=== PATIENT | male | born 1965 | race African-American/Black ===

== ENCOUNTER 2021-08-05 10:27 | Emergency (ER) | payer MEDICAID ==
[~2021-08-05] VITALS: Ht 182.9 cm; Wt 75.0 kg
[2021-08-05] MEDS ORDERED: LIDOCAINE HCL/EPINEPHRINE 1%-EPI 1:100,000 20 ML VIAL INFIL ONE (11:15)
[2021-08-05] MEDS ORDERED: TETANUS, DIPHTHERIA, PERTUSSIS VAC/PF 0.5ML (>10YR OLD) IM ONE (11:15)
[2021-08-05] MEDS ORDERED: HYDROCODONE/ACETAMINOPHEN 5/325MG TABLET PO ONE (11:15)
[2021-08-05] MEDS ORDERED: BACITRACIN ZINC OINT UDPKT TOP ONE (11:15)
[2021-08-05] MEDS ORDERED: IBUP-2029 MT (12:19)
[2021-08-05] MEDS ORDERED: CEPH500T MT (12:19)
[2021-08-05 12:27] VITALS: BP 128/79
== END 2021-08-05 12:30 | disposition home or self-care (01) ==
LOC: ER 10:27
DX: S61.011A Laceration without foreign body of right thumb without damage to nail, initial encounter (principal); W26.0XXA Contact with knife, initial encounter; Y93.89 Activity, other specified; Y92.89 Other specified places as the place of occurrence of the external cause
CPT/HCPCS: 29130; 73140; 90471; 90715; 99283; A4217; J3490; Z7610